=== PATIENT | female | born 1965 | race African-American/Black ===

== ENCOUNTER 2016-09-02 09:30 | Emergency (ER) | payer BC | END 2016-09-02 09:40 | disposition home or self-care (01) | LOC: ER 09:30 | DX: B37.3 Candidiasis of vulva and vagina (principal); I10 Essential (primary) hypertension; E11.9 Type 2 diabetes mellitus without complications; F17.200 Nicotine dependence, unspecified, uncomplicated; Z88.6 Allergy status to analgesic agent; Z91.018 Allergy to other foods | CPT/HCPCS: 99283; A9270-GY ==